=== PATIENT | male | born 1985 | race Caucasian/White ===

== ENCOUNTER 2017-02-02 03:41 | Emergency (ER) | payer MEDICAID ==
--- NOTE | 2017-02-02 07:06 | ER ---
ADMIT: 02/02/2017 RM/LOC: ER [facility] MR#: [id number] [address] [id number] [place] [address] [address] Emergency Room Report SEX: M AGE: 31 : 1985 DATE: 02/02/2017 The patient is a 31-year-old male, allegedly burned his right hand 1st web space working on motor immediately prior to arrival. Last tetanus 2015. Exam remarkable for nontoxic, afebrile, tachycardic male with 2 x 4 cm full- thickness burn, right 1st web space, base of the thumb. No evidence of swelling. Able to move thumb tip and pinch thumb. The wound was cleansed. Bacitracin dressing applied. Advised to follow up Dr. Nichols for either referral to the hand surgeon in [facility] or locally. Likely will need a graft. Hydrocodone 5/325 #15 plus 6. Lupillo Martinez MD/ steve JOB #: [id number] CC: Lupillo Martinez MD, Attending Physician Tamara Nichols MD, Family Physician Tamara Nichols MD
== END 2017-02-02 04:35 | disposition home or self-care (01) ==
LOC: ER 03:41
PROC: 2W2JX4Z Dressing of Right Finger using Bandage (ICD-10-PCS; principal; 2017-02-02)
DX: T23.311A Burn of third degree of right thumb (nail), initial encounter (principal); F17.210 Nicotine dependence, cigarettes, uncomplicated; X08.8XXA Exposure to other specified smoke, fire and flames, initial encounter